=== PATIENT | female | born 1985 | race Caucasian/White ===

== ENCOUNTER 2018-05-02 19:19 | Emergency (ER) | payer SELFPAY ==
[~2018-05-02] VITALS: Ht 162.6 cm; Wt 69.4 kg
[2018-05-02 19:21] VITALS: BP 121/77; Ht 162.6 cm; Wt 69.4 kg
== END 2018-05-02 20:16 | disposition left against medical advice (07) ==
LOC: ED 19:19
DX: Z53.21 Procedure and treatment not carried out due to patient leaving prior to being seen by health care provider (principal)

== ENCOUNTER 2019-09-28 10:22 | Emergency (ER) | payer MEDICAID ==
[~2019-09-28] VITALS: Ht 160 cm; Wt 76.7 kg
[2019-09-28 10:52] VITALS: Ht 160 cm; Wt 76.7 kg
[2019-09-28 11:39] VITALS: BP 123/83
== END 2019-09-28 11:39 | disposition home or self-care (01) ==
LOC: ED 10:22
DX: G56.03 Carpal tunnel syndrome, bilateral upper limbs (principal)